=== PATIENT | female | born 1950 | race Native Hawaiian/Other Pacific Islander ===

== ENCOUNTER 2020-03-24 14:56 | Emergency (ER) | payer OTHER ==
[~2020-03-24] VITALS: Ht 162.6 cm; Wt 136.5 kg
[2020-03-24 15:24] LABS: PLATELET COUNT 168 K/uL (152-353)
[2020-03-24 15:27] VITALS: BP 159/84; TEMP 98
[2020-03-24 15:31] LABS: POTASSIUM 3.7 mmol/L (3.6-5.2)
[2020-03-24 16:54] LABS: PARTIAL THROMBOPLASTIN TIME 28.9 SECONDS (24.5-33.6)
[2020-03-24] MEDS ORDERED: ELIQUIS5 MG PO (18:45)
[2020-03-24] MEDS ORDERED: ALPR0.5T24 PO (18:45)
[2020-03-24] MEDS ORDERED: METO50TA27 PO (18:46)
[2020-03-24] MEDS ORDERED: FURO40TA93 PO (18:46)
[2020-03-24] MEDS ORDERED: MIRALAX17 GM PO (18:46)
[2020-03-24] MEDS ORDERED: PERCOCET1 TA3 PO (18:47)
[2020-03-24] MEDS ORDERED: TIKOSYN125 MCG PO (18:48)
== END 2020-03-24 17:16 | disposition still patient (30) ==
LOC: ED 14:56
PROVIDERS: Hospitalist
DX: R46.89 Other symptoms and signs involving appearance and behavior (principal); Z72.811 Adult antisocial behavior; I50.9 Heart failure, unspecified; I48.91 Unspecified atrial fibrillation; Z11.59 Encounter for screening for other viral diseases; Z04.6 Encounter for general psychiatric examination, requested by authority
CPT/HCPCS: 80053; 81000; 82550; 83880; 84484; 85027; 85610; 85730; 87077; 87086; 87088; 87186; 87635; 93005; 99283; 99285; U0003